=== PATIENT | female | born 1970 | race Caucasian/White ===

== ENCOUNTER 2016-06-07 22:10 | Emergency (ER) ==
[2016-06-07] MEDS ORDERED: ASPIRIN PO STA (22:19)
[2016-06-07] MEDS ORDERED: ASPIRIN ONE (22:20)
[2016-06-07 22:30] LABS: MANUAL DIFF NEEDED? NO
[2016-06-07 22:35] LABS: BASO% 0.6 % (0.0-0.8); EOS% 1.1 % (0.0-10.0); HEMATOCRIT 42.3 % (37.0-47.0); HEMOGLOBIN 14.5 g/dL (12.0-16.0); IMM GRAN# 0.01 X1000 (0.0-0.04); IMM GRAN% 0.1 % (0.0-0.5); LYMPH# 2.11 X1000 (1.2-3.4); LYMPH% 23.9 % (20.5-51.1); MCH 30.1 PG (27-31); MCHC 34.3 g/dL (33-37); MCV 87.8 FL (81-99); MONO# 0.86 X1000 (0.11-0.59); MONO% 9.7 % (1.7-9.3); NEUT% 64.6 % (42.2-75.2); PLT 217 X1000 (130-400); RBC 4.82 XMIL (4.2-5.4)
[2016-06-07 22:49] LABS: ALBUMIN 4.2 g/dL (3.5-5.0); CALCIUM 9.2 mg/dL (8.8-10.2); MAGNESIUM 1.8 mg/dL (1.5-2.7); POTASSIUM 3.9 mmol/L (3.5-5.1); TOTAL BILIRUBIN 0.2 mg/dL (0.20-1.00); TOTAL PROTEIN 6.7 g/dL (6.3-8.3)
[2016-06-07 22:51] LABS: INR 0.86 (0.86-1.15)
[2016-06-07 22:52] LABS: PTT PL 26.7 Seconds (22.6-43.9)
[2016-06-07] MEDS ORDERED: G.I. COCKTAIL PO ONE (23:00)
--- NOTE | 2016-06-07 23:07 | PROVIDER DOCUMENTATION ---
HPI-Chest Pain <AnahiTorri BahEd - Last Filed: 06/07/16 23:33> - General Source: patient - History of Present Illness-CP Location: reports: central Chest Pain Radiation: reports: arms, back Quality of Pain: reports: pressure Severity in ED: moderate Onset/Duration: this morning Timing: still present Context/Activities at Onset: reports: none Associated Symptoms: reports: back pain, shortness of breath. denies: fever/ chills, headache, vomiting Nitro Today/Relief: no nitro taken today Aspirin Treatment Today: no aspirin today <Courtney Batres - Last Filed: 06/07/16 23:51> <Manuel Strong - Last Filed: 06/07/16 23:53> - General Chief Complaint: Chest Pain Stated Complaint: CHEST PAINS Time Seen by Provider: 06/07/16 22:59 Allergies/Adverse Reactions: Patient Allergies Allergy/AdvReac Type Severity Reaction Status Date / Time No Known Allergies Allergy Verified 06/07/16 22:17 Home Medications: Home Medication List Medication Instructions Recorded Confirmed Last Taken Type Sucralfate [Carafate Liquid] 1 tbs PO Q6HR PRN #8 oz 06/07/16 Unknown Rx - History of Present Illness-CP Nature of Presenting Problem: 45 Y/O F presents to ED with Chest pain. Pt states onset was this morning shortly after waking up. Pt states no hx of HTN, but does have a family hx. Pt states that the pressure began in her chest and radiated to her back. States there was a numbness then tingling feeling down her left arm. C/o of SOB. Denies all hx of any acute diseases. (Courtney Batres) Review of Systems - Adult - REVIEW OF SYSTEMS - ADULT Constitutional: denies: chills, fever Eyes: reports: no symptoms reported Ears, Nose, Mouth & Throat: reports: no symptoms reported Cardiovascular: reports: chest pain Respiratory: reports: shortness of breath Gastrointestinal: reports: abdominal pain. denies: diarrhea, nausea, vomiting Genitourinary: reports: no symptoms reported Musculoskeletal: reports: no symptoms reported Integumentary: reports: no symptoms reported Neurological: reports: no symptoms reported Psychiatric: reports: no symptoms reported Endocrine: reports: no symptoms reported Hematologic/Lymphatic: reports: no symptoms reported Allergic/Immunologic: reports: no symptoms reported All Other Systems: Reviewed and Negative <Courtney Batres - Last Filed: 06/07/16 23:51> Past History - Adult - PAST MEDICAL HISTORY-ADULT Review of Records: reports: Old Records Reviewed, Nursing Assessment Review, Medications Reviewed, Social history reviewed & non-contributory. - SOCIAL HISTORY Smoking: non-smoker Substance Use: none/never Alcohol Use Frequency: never Living Situation: family <Courtney Batres - Last Filed: 06/07/16 23:51> Physical Exam-General - PHYSICAL EXAM-ADULT Initial Vital Signs Reviewed: Yes - CONSTITUTIONAL General Appearance: appears well, alert, no apparent distress - EYES Eyes: PERRL/EOMI, pink conjunctivae, fundi clear, no AV nicking - HEAD, EARS, NOSE, MOUTH & THROAT HENMT: normocephalic/atraumatic, moist mucous membranes, normal ENT inspection, TMs normal, pharynx normal - NECK Neck: non-tender, full range of motion, supple, normal inspection - RESPIRATORY Respiratory: chest non-tender, lungs clear, normal breath sounds - CARDIOVASCULAR Cardiovascular: normal peripheral pulses, regular rate, rhythm - GASTROINTESTINAL (ABDOMEN) Abdominal Exam: normal bowel sounds, soft, tenderness - LYMPHATIC Lymphatic: no adenopathy - MUSCULOSKELETAL Back Exam: normal inspection, no CVA tenderness, no vertebral tenderness Extremity: normal range of motion, non-tender, normal gait - SKIN Integumentary: normal color, normal turgor - NEUROLOGIC Neurologic: consumer relations complaint clerk II-XII nml as tested - PSYCHIATRIC Psych/Mental Status: normal mood/affect, normal thought content, normal thought process, oriented x 3 <Courtney Batres - Last Filed: 06/07/16 23:51> Progress <Torri Christian - Last Filed: 06/07/16 23:33> - EKG 1 Time of EKG reading by physician:: 22:10 EKG Read and Signed by:: Manuel Strong EKG Interpretation (*Must complete 3 of following elements*): Normal Rate: 66 Rhythm: NSR Comments: Normal ECG <MedardoCourtney - Last Filed: 06/07/16 23:51> <Manuel Strong - Last Filed: 06/07/16 23:53> - PLAN OF CARE/RESULTS Progress/Plan/Lab Results: Discussed normal labs, EKG, and CXR. Will draw second set of cardiac enzymes in about 40 minutes, pt voiced understanding. Pt is resting comfortably. (Torri Christian) Laboratory Tests 06/07/16 06/07/16 06/07/16 22:20 22:20 22:20 WBC RBC Hgb Hct MCV MCH MCHC RDW Std Deviation Plt Count MPV Immature Gran % (Auto) Neut % (Auto) Lymph % (Auto) [place] % (Auto) Eos % (Auto) Baso % (Auto) Immature Gran # (Auto) Neut # (Auto) Lymph # (Auto) [place] # (Auto) Eos # (Auto) Baso # (Auto) PT INR APTT (Factor Assay) D-Dimer Sodium 138 Potassium 3.9 Chloride 100 Carbon Dioxide 28 Anion Gap 10 BUN 14 Creatinine 1.4 H Estimated GFR/1.73 m2 40 BUN/Creatinine Ratio 10 Glucose 111 H Calculated Osmolality 277 Calcium 9.2 Magnesium 1.8 Total Bilirubin 0.20 AST 16 ALT 18 Alkaline Phosphatase 68 Creatine Kinase 65 Troponin T < 0.010 [id number] Pept 71 Total Protein 6.7 Albumin 4.2 Globulin 3.0 Albumin/Globulin Ratio 2.0 06/07/16 06/07/16 22:20 22:20 WBC 8.83 RBC 4.82 Hgb 14.5 Hct 42.3 MCV 87.8 MCH 30.1 MCHC 34.3 RDW Std Deviation 12.7 Plt Count 217 MPV 11.0 H Immature Gran % (Auto) 0.1 Neut % (Auto) 64.6 Lymph % (Auto) 23.9 [place] % (Auto) 9.7 H Eos % (Auto) 1.1 Baso % (Auto) 0.6 Immature Gran # (Auto) 0.01 Neut # (Auto) 5.70 Lymph # (Auto) 2.11 [place] # (Auto) 0.86 H Eos # (Auto) 0.10 Baso # (Auto) 0.05 PT 12.0 L INR 0.86 APTT (Factor Assay) 26.7 D-Dimer 0.25 Sodium Potassium Chloride Carbon Dioxide Anion Gap BUN Creatinine Estimated GFR/1.73 m2 BUN/Creatinine Ratio Glucose Calculated Osmolality Calcium Magnesium Total Bilirubin AST ALT Alkaline Phosphatase Creatine Kinase Troponin T Mch-[id number] Pept Total Protein Albumin Globulin Albumin/Globulin Ratio Orders Category Date Time Status Cardiac Monitoring DIRECTED Care 06/07/16 22:19 Active Oxygen Therapy- ED Nursing DIRECTED Care 06/07/16 22:19 Active Saline Loc NOW Care 06/07/16 22:19 Active CHEST-2 VIEWS [RAD] Stat Exams 06/07/16 22:19 Taken CBC WITH ELECTRONIC DIFF [HEME] Stat Lab 06/07/16 22:20 Completed CK PROFILE [SP CHEM] Stat Lab 06/07/16 22:20 Completed COMPREHENSIVE METABOLIC PANEL [CHEM] Stat Lab 06/07/16 22:[address] D-D[address]ER [address] [COAG] Stat Lab 06/07/16 22:20 Completed MAGNESIUM [CHEM] Stat Lab 06/07/16 22:20 Completed PRO B-NATRIURETIC PEPTIDE Stat Lab 06/07/16 22:20 Completed [address]IME WITH INR PL [COAG] Stat Lab 06/07/16 22:[address] [COAG] Stat Lab 06/07/16 22:20 Completed TROPONIN T Stat Lab 06/07/16 22:20 Completed Aspirin Med 06/07/16 22:20 Discontinued 325 mg .ROUTE .STK-MED ONE Aspirin Med 06/07/16 22:19 Discontinued 325 mg PO STAT STA [place] Alk/Al&mg Hydrox [G.i. Cocktail] Med 06/07/16 23:00 Discontinued 30 ml PO NOW ONE EKG [EKG] Stat Ther 06/07/16 22:19 Ordered Vital Signs - 24 hr 06/07/16 06/07/16 22:12 23:30 Temperature 96.1 F L 98.0 F Pulse Rate 66 65 Respiratory 16 18 Rate Blood Pressure 166/102 141/86 O2 Sat by Pulse 99 100 Oximetry (Courtney Batres) Departure <Torri Christian - Last Filed: 06/07/16 23:33> <Courtney Batres - Last Filed: 06/07/16 23:51> - Departure Time of Disposition Order: 23:52 Certified Medical Emergency: Emergent <Manuel Strong - Last Filed: 06/07/16 23:53> - Departure DIAGNOSIS: Atypical chest pain Disposition: HOME 01 Condition: Stable Additional Instructions: ED Follow Up Instructions: You have been treated by a care provider in the Emergency Department. These instructions are being provided to you so you can have an understanding of how to care for yourself upon discharge. Upon discharge from the Emergency Department, you are responsible for making arrangements for follow-up care by a physician of your choice. Take all prescribed medications as directed. Return to the Emergency Department immediately for any new or worsening symptoms. You may call the Physician Referral phone number at [phone] to obtain a list of Physicians who are taking new patients. Prescriptions: Sucralfate [Carafate Liquid] 1 tbs PO Q6HR PRN #8 oz PRN Reason: Indigestion Referrals: Tariq Francois MD [Primary Care Provider] - Attestation - Scribe Verification/Attestation Scribe:: Courtney Batres Acting as Scribe for:: Manuel Strong Scribe documention review:: This chart was documented by a scribe and accurately reflects the service the provider performed and the decisions made by the provider. <Courtney Batres - Last Filed: 06/07/16 23:51> Physician Attestation
[2016-06-08 00:04] VITALS: BP 124/82
--- NOTE | 2016-06-08 01:05 | EKG Report ---
Test Performed on : 06/07/2016 10:10:19 PM Test Reason : CHEST PAIN Blood Pressure : / mmHG Vent. Rate : 066 BPM Atrial Rate : 066 BPM P-R Int : 122 ms QRS Dur : 080 ms QT Int : 410 ms P-R-T Axes : 033 063 049 degrees QTc Int : 429 ms Normal sinus rhythm. Normal ECG No previous ECGs available Unconfirmed Result
--- NOTE | 2016-06-08 06:21 | Diag Imaging Result Document ---
PROCEDURE NAME: CHEST-2 VIEWS - 06/07/2016 FRONTAL AND LATERAL CHEST, TWO VIEWS: FINDINGS: The lungs are well expanded. The heart is not enlarged. The vessels are not distended. No pneumonia. No pleural effusions. No free air beneath the diaphragm. IMPRESSION: No acute abnormality.
== END 2016-06-08 00:32 | disposition home or self-care (01) ==
LOC: P.ED 22:10
DX: R07.89 Other chest pain (principal); R06.02 Shortness of breath; R10.9 Unspecified abdominal pain
CPT/HCPCS: 71020; 80053; 82550; 83735; 83880; 84484; 85025; 85379; 85610; 85730; 93005; 99284